=== PATIENT | female | born 1960 | race Caucasian/White ===

== ENCOUNTER 2021-05-09 13:13 | Outpatient (REF) | payer SELFPAY ==
[2021-05-11 14:34] LABS: COVID-19 RT-PCR UVMMC Result Negative (Negative)
== END 2021-05-09 13:14 | disposition home or self-care (01) ==
LOC: LBN 13:13
PROVIDERS: Visit Provider Family Medicine
DX: Z20.822 Contact with and (suspected) exposure to COVID-19 (principal); R09.89 Other specified symptoms and signs involving the circulatory and respiratory systems
CPT/HCPCS: U0003

== ENCOUNTER 2022-03-24 17:04 | Emergency (ER) | payer OTHER, SELFPAY ==
[2022-03-24 17:57] VITALS: BP 122/70; PULSE 94; RESP 16; TEMP 37; O2SAT 95
--- NOTE | 2022-03-24 18:16 | ED.GENADUL_ITS ---
Discharge Plan Disposition Patient Disposition: Home Condition: Improving Discharge Details Chief Complaint: Laceration Clinical Impression: Finger laceration Primary Care Provider: Anushka,Local ED Provider: Blake García Discharge Instructions Instructions: Finger Laceration (ED) Additional Instructions: Laceration is well approximated and there is no active bleeding. Additional skin glue was applied as well as a dressing and finger splint. Change dressing daily, wear finger splint for next 7 days to avoid tearing open the laceration. Rest, elevate, cool compresses every 2 hours for 20 minutes. [id number] medication such as Tylenol and/or Motrin as directed for discomfort. Please watch for new or worsening symptoms and return to the ER for any concerns Medical Decision Making This is a 61-year-old female, [id number], tetanus is up-to-date, presents for a right finger laceration. She states 1 hour prior to arrival she was prepping food and accidentally cut herself on a metal can. Denies any other injury. She immediately attended to the laceration, applying pressure, then applying skin glue. The bleeding has stopped completely. Patient reports mild discomfort. No additional questions or concerns. Discussed options, at this time her laceration is well approximated with the skin glue she applied. We certainly could add sutures or if she could continue with skin glue and we could add a splint. She would like me to place a little bit more skin glue which I did without difficulty, then a dry dressing, then a finger splint applied. Patient tolerated well Standard discharge and return precautions were provided. Patient understands, is agreeable to this plan, and has no additional questions or concerns upon discharge. This documentation was generated using [employer] system, please disregard any oddities of phrase or misspellings. HPI General Mode of arrival: ambulatory . Date/Time Provider Initiated Documentation: 03/24/22 17:48 . Limitations to Documentation: no limitations . Information obtained by: patient . History of Present Illness 61 year old F presents to the emergency department with the chief complaint of R index finger lac, described as mild, with intensity rated at 2. Quality is described as aching, and is localized to the right and upper extremity. Patient reports no radiation. Patient started experiencing this hour(s) (1) and it has been constant. No relieving factors improve symptom(s), No exacerbating factors reported . Patient notes no other symptoms.. Patient did receive the following treatments prior to arrival, other (skin glue) General Stated Complaint: Laceration EMILIE: 4 Review of Systems Constitutional Constitutional: Denies weakness Musculoskeletal Musculoskeletal: Denies arthralgias, Denies numbness, Denies stiffness and Denies tingling Integumentary/Breasts Skin/Breast: Denies rash Neurologic Neurologic: Denies numbness, Denies tingling and Denies weakness PFSH All Active Problems (Updated 03/24/22 @ 18:21 by JUSTYNA Aaron) Finger laceration (Acute) Social History Smoking risk assessment performed?: No Exam Const General: cooperative, healthy appearing, comfortable and no acute distress Orientation: alert and awake HENMT Head: normal to inspection, normocephalic and atraumatic Eyes Conjunctivae: conjunctivae normal Neck Neck: normal visual inspection, trachea midline and supple Resp Effort & Inspection: normal respiratory effort and able to speak in complete sentences Cardio Rate: regular rate Rhythm: regular rhythm Skin General skin exam: no rashes or lesions noted Neuro General: patient alert, patient awake, moves all extremities and no focal motor deficits Cognition: normal cognition Speech: speech normal Gait: normal gait Motor: muscle tone normal throughout Sensory Exam: no sensory deficits noted Extrem General: full ROM and capillary refill normal Hand/finger images: 1. There is a 2 cm well approximated laceration with skin glue in place. No active bleeding. Neuro, vascular, tendon intact. 5 and 5 strength. Normal capillary refill. Psych Appearance: grossly normal Mental Status: mental status grossly normal Course Vital Signs Vital signs: Vital Signs Temperature 37.0 C 03/24/22 17:57 Pulse 94 H 03/24/22 17:57 Respiratory Rate 16 03/24/22 17:57 Blood Pressure 122/70 03/24/22 17:57 Pulse Oximetry 95 03/24/22 17:57 Temperature 37.0 C 03/24/22 17:57 Temperature Source Skin 03/24/22 17:57 Pulse 94 H 03/24/22 17:57 Respiratory Rate 16 03/24/22 17:57 Blood Pressure 122/70 03/24/22 17:57 Blood Pressure Position Supine 03/24/22 17:57 Pulse Oximetry 95 03/24/22 17:57 Oxygen Delivery Method Room Air 03/24/22 17:57 Oxygen Flow Rate 0 03/24/22 17:57 Pain Level 1 03/24/22 17:59
[2022-03-24 18:27] VITALS: BP 122/70; PULSE 89; RESP 16; TEMP 37; O2SAT 95
== END 2022-03-24 18:36 | disposition home or self-care (01) ==
PROVIDERS: Emergency Provider Physician Assistant
DX: S61.210A Laceration without foreign body of right index finger without damage to nail, initial encounter (principal); W26.8XXA Contact with other sharp object(s), not elsewhere classified, initial encounter
CPT/HCPCS: 29130; 99283; 99282